=== PATIENT | female | born 1985 | race Caucasian/White ===

== ENCOUNTER 2018-05-05 04:25 | Emergency (ER) | payer OTHER ==
[2018-05-05] MEDS ORDERED: Ketorolac 60 MG/2 ML SDV IM ONE (05:37)
[2018-05-05] MEDS ORDERED: Sulfamethoxazole/Trimethoprim 800-160 MG Tab PO ONE (05:41)
[2018-05-05] MEDS ORDERED: Phenazopyridine 95 MG Tab PO ONE (05:41)
[2018-05-05] MEDS ORDERED: Ondansetron 4 MG Tab.DIS PO ONE (05:41)
--- NOTE | 2018-05-05 05:48 | EDM.PDOC ---
ED HPI GENERAL MEDICAL PROBLEM - General Chief Complaint: Genitourinary Problem Stated Complaint: UTI??? Time Seen by Provider: 05/05/18 05:35 Source of Information: Reports: Patient History Limitations: Reports: No Limitations - History of Present Illness INITIAL COMMENTS - FREE TEXT/NARRATIVE: 33 yo female from [facility] presents with dysuria associated with bright red urine. Started last night as pain with urination. Now worse. Some L low back pain. Has mild nausea without vomiting or fever. Has no hx of kidney stone. Onset: Gradual Onset Date: 05/04/18 Duration: Hour(s):, Getting Worse Location: Reports: Back (L low), Pelvis (urethral) Quality: Reports: Burning Severity: Moderate Improves with: Reports: None Worsens with: Reports: Other (time) Context: Reports: Other (feels like UTI to patient) Associated Symptoms: Reports: Nausea/Vomiting (no vomiting.) Treatments LIVE OUT NANNY: Reports: Other (see below) Other Treatments LIVE OUT NANNY: none right side lower back Pain Score (Numeric/FACES): 6 - Related Data Allergies Allergy/AdvReac Type Severity Reaction Status Date / Time No Known Allergies Allergy Verified 05/05/18 04:50 Home Meds: Home Meds Citalopram Hydrobromide [Celexa] 10 mg PO DAILY 05/05/18 [History] busPIRone [Buspar] 40 mg PO DAILY 05/05/18 [History] Past Medical History Gastrointestinal History: Reports: Cholelithiasis [employer]CHITECT History: Reports: Polycystic Ovaries, Psychiatric History: Reports: Anxiety, Depression - Infectious Disease History Infectious Disease History: Reports: Chicken Pox - Past Surgical History GI Surgical History: Reports: Cholecystectomy Social & Family History - Tobacco Use Smoking Status *Q: Never Smoker - Caffeine Use Caffeine Use: Reports: Coffee, Soda - Recreational Drug Use Recreational Drug Use: No ED ROS GENERAL - Review of Systems Review Of Systems: See Below Constitutional: Reports: No Symptoms GI/Abdominal: Reports: No Symptoms : Reports: Dysuria, Frequency, Hematuria, Urgency Musculoskeletal: Reports: No Symptoms Skin: Reports: No Symptoms ED EXAM, RENAL/ - Physical Exam Exam: See Below Exam Limited By: No Limitations General Appearance: Alert, WD/WN, No Apparent Distress GI/Abdominal: Normal Bowel Sounds, Soft, Non-Tender, No Distention Back Exam: Normal Inspection. No: CVA Tenderness (R), CVA Tenderness (L) Extremities: Normal Inspection, Other (muscular tenderness L low lumbar area) Neurological: Alert, Oriented, CN II-XII Intact, Normal Cognition, No Motor/ Sensory Deficits Psychiatric: Normal Affect, Normal Mood Skin Exam: Warm, Dry, Intact, Normal Color, No Rash Course - Vital Signs Last Recorded V/S: Last Vital Signs Temp 35.9 C 05/05/18 04:59 Pulse 78 05/05/18 04:59 Resp 17 05/05/18 04:59 BP 108/66 05/05/18 04:59 Pulse Ox 97 05/05/18 04:59 - Orders/Labs/Meds Orders: Active Orders 24 hr Category Date Time Status Abdomen Pelvis wo Cont [CT] Stat Exams 05/05/18 06:09 Ordered CULTURE URINE [RM] Stat Lab 05/05/18 05:30 Ordered Labs: Laboratory Tests 05/05/18 05/05/18 Range/Units 04:41 05:57 Urine Color Red Red Urine Appearance Clear Cloudy Urine pH 6.0 5.0 (4.5-8.0) Ur Specific Richardson 1.010 1.015 (1.008-1.030) Urine Protein 30 H 500 H (NEGATIVE) mg/dL Urine Glucose (UA) Normal Normal (NEGATIVE) mg/dL Urine Ketones Negative Negative (NEGATIVE) mg/dL Urine Occult Blood Large Large (NEGATIVE) Urine Nitrite Negative Negative (NEGATIVE) Urine Bilirubin Negative Negative (NEGATIVE) Urine Urobilinogen Normal 1 (NORMAL) mg/dL Ur Leukocyte Esterase Moderate Large (NEGATIVE) Urine RBC 0-5 >100 H (0-5) Urine WBC 5-10 H 5-10 H (0-5) Ur Epithelial Cells Few Few Amorphous Sediment Not seen Not seen Urine Bacteria Moderate Moderate Urine Mucus Not seen Not seen Meds: Medications Discontinued Medications Generic Name Dose Route Start Last Admin Trade Name Freq PRN Reason Stop Dose Admin Ketorolac Tromethamine 60 mg 05/05/18 05:37 05/05/18 05:48 Toradol IM 05/05/18 05:38 60 mg ONETIME ONE Administration Ondansetron HCl 4 mg 05/05/18 05:41 05/05/18 05:48 Zofran Odt PO 05/05/18 05:42 4 mg ONETIME ONE Administration Phenazopyridine HCl 95 mg 05/05/18 05:41 05/05/18 05:47 Urinary Pain Relief PO 05/05/18 05:42 95 mg ONETIME ONE Administration Trimethoprim/Sulfamethoxazole 1 tab 05/05/18 05:41 05/05/18 05:47 Septra Ds PO 05/05/18 05:42 1 tab ONETIME ONE Administration - Radiology Interpretation CT Results Date: 05/05/18 Departure - Departure Time of Disposition: 06:54 Disposition: Home, Self-Care 01 Condition: Good Clinical Impression: Hemorrhagic cystitis - Discharge Information Referrals: PCP,None [Primary Care Provider] - Forms: ED Department Discharge - My Orders Last 24 Hours: My Active Orders 05/05/18 05:30 CULTURE URINE [RM] Stat 05/05/18 06:09 Abdomen Pelvis wo Cont [CT] Stat - Assessment/Plan Last 24 Hours: My Active Orders 05/05/18 05:30 CULTURE URINE [RM] Stat 05/05/18 06:09 Abdomen Pelvis wo Cont [CT] Stat
== END 2018-05-05 07:02 | disposition home or self-care (01) ==
LOC: JP.ED 04:25
DX: N30.91 Cystitis, unspecified with hematuria (principal); F41.9 Anxiety disorder, unspecified; F32.9 Major depressive disorder, single episode, unspecified; Z90.49 Acquired absence of other specified parts of digestive tract; Z79.899 Other long term (current) drug therapy
CPT/HCPCS: 74176; 81001; 87086; 87088; 87186; 96372; 99284; A9270; J1885